=== PATIENT | female | born 1960 | race Caucasian/White ===

== ENCOUNTER 2017-03-19 10:37 | Emergency (ER) | payer OTHER ==
--- NOTE | ~2017-03-19 | CR181 ---
[facility] A Service of [facility] RADIOLOGY TEXT RESULTS PATIENT: CAROL RODRIGUEZ LOCATION: SED : 58 UNIT #: [id number] AGE: [address]: Annamaria Sorto SEX: F ORDER DR: [id number] [address] [address] [id number] E MR#: [id number] Acc #: [id number] NAME: CAROL RODRIGUEZ : 1960 SEX: F STUDY DATE/TIME: 03/19/2017 11:25 UNIT: SED ROOM: STUDY DESCRIPTION: CR Lumbar Spine 2 or 3 Views Attending Physician: Annamaria Sorto Pa-C Ordering Physician: Annamaria Sorto Pa-C MEDICAL IMAGING REPORT This report is preliminary unless electronic signature is present. EXAM Three views of the lumbar spine. INDICATIONS Left hip and low back pain starting this morning. No known injury. FINDINGS No acute fracture or subluxation of the lumbar spine is identified. Patient does have anterolisthesis of L5 on S1 which is favored to be related to spondylolysis, incompletely evaluated on this study, would grade this as approximately moderate in severity. Remainder of bony alignment appears within normal limits. 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 No aggressive osseous abnormalities are noted. IMPRESSION No acute fracture or subluxation identified. Patient does have suspected spondylolisthesis at L5 on S1 which I would grade as has probably moderate in severity. Dictated by... Shannon Cabezas M.D. THIS IS AN ELECTRONICALLY VERIFIED REPORT Shannon Cabezas M.D. at 03/20/2017 1:05 PM AFF/jt TD: 03/19/2017 16:57 JOB #: [id number] MEDICAL IMAGING REPORT [facility] A Service of [facility] RADIOLOGY TEXT RESULTS PATIENT: CAROL RODRIGUEZ LOCATION: SED : 58 UNIT #: [id number] AGE: [address]: Annamaria Sorto SEX: F ORDER DR: Page 1 of 1
--- NOTE | ~2017-03-19 | CR150 ---
[facility]. [facility] A Service of [facility] RADIOLOGY TEXT RESULTS PATIENT: CAROL RODRIGUEZ LOCATION: SED : 58 UNIT #: [id number] AGE: [address]: Annamaria Sorto SEX: F ORDER DR: [id number] [address] [address] [id number] E MR#: [id number] Acc #: [id number] NAME: CAROL RODRIGUEZ : 1960 SEX: F STUDY DATE/TIME: 03/19/2017 11:25 UNIT: SED ROOM: STUDY DESCRIPTION: CR Hip Min 2 Views Lt Attending Physician: Annamaria Sorto Pa-C Ordering Physician: Annamaria Sorto Pa-C MEDICAL IMAGING REPORT This report is preliminary unless electronic signature is present. EXAM Two views left hip INDICATIONS Pain in the low back and left hip starting this morning. FINDINGS No acute fracture or subluxation of either hip is identified. There is really no significant degenerative change of the hips, although I do think there is some degenerative change involving the left SI joint. There are changes of prior ventral hernia repair with mesh. No aggressive osseous abnormalities are seen. IMPRESSION No acute findings. Patient does appear to have some degenerative changes involving the left SI joint. Dictated by... Shannon Cabezas M.D. THIS IS AN ELECTRONICALLY VERIFIED REPORT Shannon Cabezas M.D. at 03/20/2017 1:05 PM AFF/jt TD: 03/19/2017 16:55 JOB #: [id number] MEDICAL IMAGING REPORT Page 1 of 1
[2017-03-19] MEDS ORDERED: SYNTHROID0.05 MG PO (10:52)
[2017-03-19] MEDS ORDERED: GABAPENTIN300 MG PO (10:53)
[2017-03-19] MEDS ORDERED: CELEXA PO (10:53)
[2017-03-19] MEDS ORDERED: LOPRESSOR PO (10:53)
[2017-03-19] MEDS ORDERED: AMITRYPTYLINE PO (10:54)
[2017-03-19] MEDS ORDERED: ETODOLAC200 MG PO (10:54)
[2017-03-19] MEDS ORDERED: CALCIUM 500 +1 EAC2 PO (10:54)
[2017-03-19] MEDS ORDERED: BUSPAR PO (10:55)
[2017-03-19 11:30] LABS: URINE SOURCE CLEAN CATCH
[2017-03-19 11:33] LABS: URINE APPEARANCE CLEAR; URINE BLOOD NEG (NEG); URINE COLOR YELLOW; URINE GLUCOSE NEG (NORM); URINE KETONE TRACE (NEG); URINE LEUKOCYTE ESTERASE NEG (NEG); URINE NITRATE NEG (NEG); URINE PH 5.5 (5-8); URINE PROTEIN NEG (NEG); URINE SPECIFIC GRAVITY >=1.030 (1.003-1.035); URINE UROBILINOGEN 0.2 MG/DL (NORM)
[2017-03-19 11:35] LABS: MICRO INDICATED? NO; URINE BILIRUBIN NEG (NEG)
== END 2017-03-19 12:47 | disposition home or self-care (01) ==
LOC: SED 10:37
PROVIDERS: Physician Assistant Medical
DX: M54.32 Sciatica, left side (principal); Z88.2 Allergy status to sulfonamides; Z79.899 Other long term (current) drug therapy; Z90.710 Acquired absence of both cervix and uterus; Z90.49 Acquired absence of other specified parts of digestive tract
CPT/HCPCS: 72100; 73502; 81003; 99283